=== PATIENT | female | born 1990 ===

== ENCOUNTER 2018-09-25 11:35 | Inpatient (IN) | payer MEDICAID, OTHER ==
[~2018-09-25] VITALS: Ht 172.7 cm; Wt 124.7 kg
[2018-09-25] MEDS ORDERED: LACT. RINGERS/OXYTOCIN 20UNITS 1,000 ML IV SCH ×2 (12:31→16:25)
[2018-09-25] MEDS ORDERED: LACTATED RINGER'S 1,000 ML IV SCH ×2 (12:31→16:25)
[2018-09-25] MEDS ORDERED: WITCH HAZEL-GLYCERIN PAD TOP PRN (12:45)
[2018-09-25] MEDS ORDERED: DERMOPLAST 60ML BOTTLE TOP PRN (12:45)
[2018-09-25] MEDS ORDERED: PHISODERM TOP SOLN 240ML BTL TOP PRN (12:45)
[2018-09-25] MEDS ORDERED: LIDOCAINE 2%HCL (LOCAL ANESTH.) INJ 20ML MDV ID ONE (12:45)
[2018-09-25] MEDS ORDERED: NALBUPHINE HCL 10 MG/1ml INJECTION IV PRN ×2 (12:45→22:30)
[2018-09-25] MEDS ORDERED: PENICILLIN G POT 5MIL/D5 50ML 50 ML IV ONE ×2 (13:00→17:02)
[2018-09-25 13:42] LABS: Basophils # (auto) 0 uL; Basophils % (auto) 0.2 % (0.0-2.0); Eosinophils # (auto) 0.1 uL; Eosinophils % (auto) 0.9 % (0.0-7.0); Hematocrit 38.5 % (36.0-46.0); Hemoglobin 12.7 g/dL (12.2-16.2); Lymphocytes # (auto) 1.1 uL; Lymphocytes % (auto) 14.6 % (10.0-50.0); Mean Corpuscular Hemoglobin 29.6 pg (28.0-32.0); Mean Corpuscular Hgb Conc. 32.9 g/dL (32.0-36.0); Monocytes # (auto) 0.5 uL; Neutrophils # (auto) 5.9 uL; Neutrophils % (auto) 78.3 % (37.0-80.0); Platelet Count (auto) 207 10^3/uL (140-450); Red Blood Cells 4.28 10^6/uL (4.0-5.20); Red Cell Distribution Width 14.2 % (11.8-14.3); White Blood Cell 7.5 10^3/uL (4.4-10.8)
[2018-09-25 13:57] LABS: INR 0.82 (0.9-1.15); Partial Thromboplastin Time 26.1 sec (23.78-33.04); Prothrombin Time 8.9 sec (9.27-12.13)
[2018-09-25 14:04] LABS: Albumin 2.7 g/dL (3.4-5.0); Calcium 8.5 mg/dL (8.5-10.1)
[2018-09-25 14:08] LABS: BUN/Creatinine Ratio 10.9; Bilirubin, Total 0.3 mg/dL (0.2-1.0); Total Protein 6.8 g/dL (6.4-8.2)
[2018-09-25 14:19] LABS: Urine Bacteria FEW /hpf (None Seen); Urine Blood Negative /uL (Negative); Urine Specific Gravity 1.007 (1.001-1.035); Urine WBC <1 /hpf (0 - 5)
[2018-09-25 14:37] LABS: Alcohol, Urine < 3.0 mg/dL (0-5); Amphetamine Screen, Urine NEGATIVE (NEGATIVE); Barbiturate Scree,Urine NEGATIVE (NEGATIVE); Benzodiazephine Screen, Urine NEGATIVE (NEGATIVE); Cannabinoid Screen, Urine NEGATIVE (NEGATIVE); Cocaine Screen, Urine NEGATIVE (NEGATIVE); Opiate Scree,Urine NEGATIVE (NEGATIVE); Phencyclidine Screen, Urine NEGATIVE (NEGATIVE)
[2018-09-25] MEDS ORDERED: TERBUTALINE SULFATE 1 MG/ML 1ML VIAL SC ONE (17:00)
[2018-09-25] MEDS: PENICILLIN G POTASSIUM 2,500,000 UNITS in D5W 5% 50 ML IV SCH ×2 (17:08→20:50)
[2018-09-25] MEDS ORDERED: NALOXONE HCL 0.4 MG/ML VIAL IV ONE (18:30)
[2018-09-25] MEDS ORDERED: fentaNYL CITRATE 100 MCG/2 ML VL IV ONE (18:30)
[2018-09-25] MEDS ORDERED: ePHEDrine SULFATE 50 MG/ML AMP IV ONE (18:30)
[2018-09-25] MEDS ORDERED: fentaNYL W ROPIVACAINE 150 ML EPI SCH (18:30)
[2018-09-25] MEDS ORDERED: LIDOCAINE HCL 2 %PF INJ 10ML AMP IJ ONE (18:30)
[2018-09-25] MEDS ORDERED: IBUPROFEN 600 MG TAB PO PRN (22:00)
[2018-09-25] MEDS ORDERED: ACETAMINOPHEN 325 MG TAB PO PRN (22:00)
[2018-09-26] MEDS: PENICILLIN G POTASSIUM 2,500,000 UNITS in D5W 5% 50 ML IV SCH (01:00)
[2018-09-26 02:57] VITALS: BP 106/57
[2018-09-26 06:06] LABS: RPR Non Reactive (Non Reactive)
[2018-09-26 06:45] VITALS: BP 105/55
[2018-09-26 11:00] VITALS: BP 104/55
[2018-09-26 15:30] VITALS: BP 100/56
[2018-09-26 19:24] VITALS: BP 108/64
[2018-09-27] VITALS: BP 112/53
[2018-09-27 03:10] VITALS: BP 113/56
[2018-09-27 07:20] VITALS: BP 103/60
[2018-09-27] MEDS ORDERED: PREN-129 PO (08:34)
== END 2018-09-27 09:50 | disposition home or self-care (01) | DRG 560 ==
LOC: LDRP 11:35 → OBSVTOIN 11:35 → LDRP 18:42
PROVIDERS: ADMIT Specialist; ATTEND Specialist
PROC: 10E0XZZ Delivery of Products of Conception, External Approach (ICD-10-PCS; principal; 2018-09-25)
PROC: 0HQ9XZZ Repair Perineum Skin, External Approach (ICD-10-PCS; 2018-09-25)
DX: O69.81X0 Labor and delivery complicated by cord around neck, without compression, not applicable or unspecified (principal); O70.0 First degree perineal laceration during delivery; O99.824 Streptococcus B carrier state complicating childbirth; O99.214 Obesity complicating childbirth; Z37.0 Single live birth; Z3A.40 40 weeks gestation of pregnancy; Z88.8 Allergy status to other drugs, medicaments and biological substances; Z91.048 Other nonmedicinal substance allergy status
CPT/HCPCS: 36415; 59025; 59409; 80053; 80307; 81001; 81002; 85025; 85610; 85730; 86592; 86850; 86870; 86900; 86901; 96361; 96365; 96366; G0378; J2540; J2590; J3010; J7060